=== PATIENT | female | born 1965 | race African-American/Black ===

== ENCOUNTER 2025-04-30 07:49 | Inpatient (IN) | payer MEDICAID ==
[~2025-04-30] VITALS: Ht 157.5 cm; Wt 85.3 kg
[2025-04-30 07:50] VITALS: O2SAT 95
[2025-04-30 08:57] LABS: BASOPHILS % 0.5 % (0.0-2.0); EOSINOPHILS % 0.2 % (0.0-5.0); HEMATOCRIT. 46.4 % (36.0-48.0); HEMOGLOBIN. 15.4 g/dL (12.0-16.0); LYMPHOCYTES % 11.4 % (20.0-50.0); MEAN PLATELET VOLUME 10.0 fl (7.4-10.4); MONOCYTES % 3.0 % (2.0-8.0); NEUTROPHILS % 84.9 % (40.0-76.0); PLATELET 214 x1000/uL (130-400); RED BLOOD CELL COUNT 5.20 mill/uL (4.2-5.4); RED CELL DISTRIBUTION WIDTH 15.7 % (11.6-14.6)
[2025-04-30] MEDS: ONDANSETRON HCL 4MG/2ML INJ IV ONE (08:58)
[2025-04-30] MEDS: ACETAMINOPHEN 325MG TABLET PO ONE (08:58)
[2025-04-30 09:34] LABS: CREATININE 1.1 mg/dL (0.6-1.0); UREA NITROGEN BLOOD 10 mg/dL (9-23)
[2025-04-30 09:36] LABS: ASPARTATE AMINOTRANSFERASE 33 IU/L (<34); BILIRUBIN TOTAL 0.8 mg/dL (0.1-1.0); PROTEIN TOTAL 8.0 g/dL (6.0-8.3)
[2025-04-30 09:37] LABS: TROPONIN I HIGH SENSITIVITY 79 ng/L (3.0-34)
[2025-04-30] MEDS ORDERED: CLONIDINE 0.1MG TABLET PO PRN (10:45)
[2025-04-30] MEDS ORDERED: ACETAMINOPHEN 325MG TABLET PO PRN ×2 (10:45)
[2025-04-30] MEDS ORDERED: GUAIFENESIN 200MG/10ML SUGAR FREE UDC PO PRN ×2 (10:45→11:00)
[2025-04-30] MEDS ORDERED: MAGNESIUM/ALUMINUM HYDROXIDE/SIMETHICONE 30ML UDC PO PRN (10:45)
[2025-04-30] MEDS ORDERED: DEXTROSE 50% WATER 50ML SYRINGE IV PRN (10:45)
[2025-04-30] MEDS ORDERED: DOCUSATE SODIUM 100MG CAPSULE PO PRN (10:45)
[2025-04-30] MEDS ORDERED: BENZONATATE 100MG CAPSULE PO PRN (11:00)
[2025-04-30] MEDS ORDERED: AZITHROMYCIN 500MG/250ML 250 ML IV SCH (11:00)
[2025-04-30] MEDS ORDERED: HYDRALAZINE 20MG/ML VIAL IV PRN (11:00)
[2025-04-30] MEDS ORDERED: HYDROXYZINE 25MG TABLET PO PRN (11:15)
[2025-04-30 11:32] LABS: INR 1.0
[2025-04-30 11:39] LABS: TROPONIN I HIGH SENSITIVITY 257 ng/L (3.0-34)
[2025-04-30 11:54] LABS: CLARITY URINE CLEAR (CLEAR); COLOR URINE YELLOW (YELLOW); GLUCOSE URINE 3+ (NEGATIVE); KETONES URINE TRACE (NEGATIVE); LEUKOCYTE ESTERASE URINE NEGATIVE (NEGATIVE); NITRITE URINE NEGATIVE (NEGATIVE); OCCULT BLOOD URINE 1+ (NEGATIVE); PH URINE 6.0 (4.5-8.0); PROTEIN URINE 2+ (NEGATIVE); SPECIFIC GRAVITY URINE 1.015 (1.005-1.030); UROBILINOGEN URINE 0.2 E.U./dL (0.2-1.0)
[2025-04-30 12:00] VITALS: BP 106/42; PULSE 75; RESP 17; TEMP 36.7; O2SAT 99
[2025-04-30] MEDS ORDERED: CEFTRIAXONE 2GM/50ML 50 ML IV SCH (12:00)
[2025-04-30] MEDS: PANTOPRAZOLE SODIUM 40 MG/VIAL IV SCH (12:02)
[2025-04-30] MEDS: DEXT 5%/LACTATED RINGERS 1,000 ML IV ONE (12:02)
[2025-04-30 12:20] LABS: *AMPHETAMINES SCREEN URINE NEGATIVE (NEGATIVE); *BARBITURATES SCREEN URINE NEGATIVE (NEGATIVE); *BENZODIAZEPINES SCREEN URINE NEGATIVE (NEGATIVE); *COCAINE SCREEN URINE NEGATIVE (NEGATIVE); METHADONE URINE SCREEN NEGATIVE (NEGATIVE)
[2025-04-30 12:21] LABS: CANNABINOID URINE SCREEN PRESUMPTIVE POSITIVE (NEGATIVE); ECSTASY MDMA SCREEN URINE NEGATIVE (NEGATIVE); OPIATES URINE SCREEN NEGATIVE (NEGATIVE); PHENCYCLIDINE URINE SCREEN NEGATIVE (NEGATIVE)
[2025-04-30 12:35] LABS: BACTERIA URINE 3+; SQUAMOUS EPITHELIAL CELL URINE 2+ /lpf (RARE/1+); YEAST URINE NONE SEEN
[2025-04-30 12:45] VITALS: BP 140/25; PULSE 78; RESP 18; TEMP 36.7516
[2025-04-30] MEDS: INSULIN LISPRO 100 UNITS/ML SUBCUT SCH (12:53)
[2025-04-30 12:59] LABS: TROPONIN I HIGH SENSITIVITY 372 ng/L (3.0-34)
[2025-04-30] MEDS: ASPIRIN 81MG TABLET PO NR (13:07)
[2025-04-30] MEDS: BLOOD SUGAR DIAGNOSTIC STRIP TEST SCH (13:38)
[2025-04-30] MEDS: CEFTRIAXONE 2GM/50ML 50 ML IV SCH (15:10)
[2025-04-30 16:00] VITALS: BP 140/75; PULSE 78; RESP 18; TEMP 36.7; O2SAT 99
[2025-04-30] MEDS: KETOROLAC 15MG/ML VIAL IV PRN (17:13)
[2025-04-30] MEDS: AZITHROMYCIN 500MG/250ML 250 ML IV SCH (17:26)
[2025-04-30 18:13] LABS: CREATINE KINASE MB FRACTION 2.7 ng/mL (0.5-3.6)
[2025-04-30 18:31] LABS: TROPONIN I HIGH SENSITIVITY 841.0 ng/L (3.0-34)
[2025-04-30 20:00] VITALS: BP 119/62; PULSE 63; RESP 20; TEMP 36.3; O2SAT 96
[2025-04-30] MEDS ORDERED: ATORVASTATIN CALCIUM 20MG TABLET PO SCH (21:00)
[2025-05-01] VITALS: BP 140/75; PULSE 78; RESP 18; TEMP 36.7; O2SAT 99
[2025-05-01 00:06] LABS: CREATINE KINASE MB FRACTION 3.6 ng/mL (0.5-3.6)
[2025-05-01 00:10] LABS: TROPONIN I HIGH SENSITIVITY 594.0 ng/L (3.0-34)
[2025-05-01 04:00] VITALS: BP 131/69; PULSE 77; RESP 16; TEMP 37; O2SAT 99
[2025-05-01] MEDS: ENOXAPARIN 100MG/ML SYR SUBCUT SCH (06:00)
[2025-05-01] MEDS: ATORVASTATIN CALCIUM 40MG TABLET PO SCH (06:15)
[2025-05-01] MEDS: AMLODIPINE 5MG TABLET PO SCH (06:15)
[2025-05-01 07:20] LABS: BASOPHILS % 0.2 % (0.0-2.0); EOSINOPHILS % 0.2 % (0.0-5.0); HEMATOCRIT. 39.4 % (36.0-48.0); HEMOGLOBIN. 13.2 g/dL (12.0-16.0); LYMPHOCYTES % 32.9 % (20.0-50.0); MEAN PLATELET VOLUME 9.9 fl (7.4-10.4); MONOCYTES % 4.6 % (2.0-8.0); NEUTROPHILS % 62.1 % (40.0-76.0); PLATELET 158 x1000/uL (130-400); RED BLOOD CELL COUNT 4.37 mill/uL (4.2-5.4); RED CELL DISTRIBUTION WIDTH 15.1 % (11.6-14.6)
[2025-05-01 07:40] LABS: CREATININE 1.0 mg/dL (0.6-1.0); TRIGLYCERIDE 176 mg/dL (0-150); UREA NITROGEN BLOOD 10 mg/dL (9-23)
[2025-05-01 07:41] LABS: LDL CHOLESTEROL 163 mg/dL (5-100)
[2025-05-01 07:43] LABS: T4 FREE 1.12 ng/dL (0.89-1.76)
[2025-05-01 08:06] VITALS: PULSE 85; RESP 16
[2025-05-01] MEDS: IPRATROPIUM/ALBUTEROL 0.5-3(2.5)MG/3ML NEB HHN PRN (08:06)
[2025-05-01] MEDS: ASPIRIN 81MG TABLET PO SCH (10:40)
[2025-05-01] MEDS: MULTIVITAMINS,THER W-MINERALS TABLET PO SCH (10:40)
[2025-05-01] MEDS: POTASSIUM CHLORIDE 20MEQ/PACKET PO NR (10:41)
[2025-05-01] MEDS: MAGNESIUM 2 G PREMIX 50 ML IV NR (10:41)
[2025-05-01] MEDS: THIAMINE HCL 100MG TABLET PO SCH (10:41)
[2025-05-01 12:00] VITALS: BP 126/50; PULSE 57; RESP 19; TEMP 36.5; O2SAT 98
[2025-05-01 12:07] LABS: ASPARTATE AMINOTRANSFERASE 25 IU/L (<34); BILIRUBIN DIRECT 0.2 mg/dL (<=3.0); BILIRUBIN TOTAL 0.9 mg/dL (0.1-1.0); PROTEIN TOTAL 6.7 g/dL (6.0-8.3)
[2025-05-01 16:00] VITALS: BP_SYST 101; BP_SYST 109; BP_DIAS 51; BP_DIAS 61; PULSE 99; RESP 16; TEMP 36.6; O2SAT 98
[2025-05-01 20:00] VITALS: BP 111/69; PULSE 88; RESP 18; TEMP 36.5; O2SAT 99
[2025-05-01 22:53] LABS: INFLUENZA TYPE A Presumptive Negative (Pres. Neg.)
[2025-05-01 22:54] LABS: INFLUENZA TYPE B Presumptive Negative (Pres. Neg.)
[2025-05-01 22:55] LABS: RESPIRATORY SYNCYTIAL VIRUS Not Detected (Not Detectd)
[2025-05-02] VITALS: BP 121/74; PULSE 67; RESP 16; TEMP 36.4; O2SAT 99
[2025-05-02 04:00] VITALS: BP 125/67; PULSE 88; RESP 17; TEMP 36.1; O2SAT 99
[2025-05-02 07:04] LABS: BASOPHILS % 0.4 % (0.0-2.0); CREATININE 0.9 mg/dL (0.6-1.0); EOSINOPHILS % 0.8 % (0.0-5.0); HEMATOCRIT. 39.0 % (36.0-48.0); HEMOGLOBIN. 13.3 g/dL (12.0-16.0); LYMPHOCYTES % 47.5 % (20.0-50.0); MEAN PLATELET VOLUME 9.8 fl (7.4-10.4); MONOCYTES % 6.8 % (2.0-8.0); NEUTROPHILS % 44.5 % (40.0-76.0); PLATELET 146 x1000/uL (130-400); RED BLOOD CELL COUNT 4.41 mill/uL (4.2-5.4); RED CELL DISTRIBUTION WIDTH 15.1 % (11.6-14.6)
[2025-05-02 07:05] LABS: UREA NITROGEN BLOOD 9 mg/dL (9-23)
[2025-05-02] MEDS ORDERED: HEPARIN 1000 UNITS/ML 10ML ONE (07:39)
[2025-05-02] MEDS ORDERED: IODIXANOL 320MG/ML 100 ML BOTTLE IV ONE ×2 (07:39→09:42)
[2025-05-02] MEDS ORDERED: LIDOCAINE HCL 1% 20ML VIAL ONE (08:51)
[2025-05-02] MEDS ORDERED: FENTANYL CITRATE/PF 50MCG/ML 2ML VIAL ONE ×2 (08:51→09:59)
[2025-05-02] MEDS ORDERED: MIDAZOLAM HCL 2 MG/2 ML VIAL ONE ×3 (08:51→10:09)
[2025-05-02] MEDS ORDERED: ATROPINE SULFATE 1MG/10ML SYR ONE (08:51)
[2025-05-02] MEDS ORDERED: VERAPAMIL HCL 2.5 MG/1 ML 2ML VIAL IV ONE (08:51)
[2025-05-02] MEDS ORDERED: DIPHENHYDRAMINE 50MG/ML VIAL ONE (08:51)
[2025-05-02] MEDS ORDERED: ONDANSETRON HCL 4MG/2ML INJ ONE (09:53)
[2025-05-02] MEDS ORDERED: HYDRALAZINE 20MG/ML VIAL ONE (10:09)
[2025-05-02] MEDS ORDERED: ACETAMINOPHEN 325MG TABLET PO PRN (11:00)
[2025-05-02] MEDS ORDERED: ATROPINE SULFATE 1MG/10ML SYR IV PRN (11:00)
[2025-05-02] MEDS: MORPHINE SULFATE 2 MG/ML INJ (NOT FOR IM USE) IV PRN (11:09)
[2025-05-02] MEDS: ONDANSETRON HCL 4MG/2ML INJ IV PRN (11:14)
[2025-05-02] MEDS: CLOPIDOGREL 75MG TABLET PO NR ×2 (11:45→17:36)
[2025-05-02 12:25] VITALS: BP 153/93; PULSE 92; RESP 22; TEMP 36.2; O2SAT 98
[2025-05-02] MEDS ORDERED: NALOXONE HCL 0.4MG/ML VIAL IV PRN (12:45)
[2025-05-02] MEDS: SODIUM CHLORIDE 0.45% 500 ML IV SCH (14:43)
[2025-05-02 16:00] VITALS: BP 128/63; PULSE 54; RESP 34; TEMP 36.4; O2SAT 92
[2025-05-02 20:00] VITALS: BP 146/77; PULSE 83; RESP 19; TEMP 36.4; O2SAT 93
[2025-05-02] MEDS: LEVOFLOXACIN 750MG PREMIX 150 ML IV SCH (20:46)
[2025-05-03] VITALS (34 sets, daily range): BP systolic 93–174; BP diastolic 10–153; PULSE 72–91; RESP 6–42; TEMP 36.6–37.2; O2SAT 90–99
[2025-05-03 07:55] LABS: BASOPHILS % 0.1 % (0.0-2.0); EOSINOPHILS % 0.2 % (0.0-5.0); HEMATOCRIT. 36.5 % (36.0-48.0); HEMOGLOBIN. 12.5 g/dL (12.0-16.0); LYMPHOCYTES % 30.8 % (20.0-50.0); MEAN PLATELET VOLUME 9.8 fl (7.4-10.4); MONOCYTES % 7.0 % (2.0-8.0); NEUTROPHILS % 61.9 % (40.0-76.0); PLATELET 142 x1000/uL (130-400); RED BLOOD CELL COUNT 4.12 mill/uL (4.2-5.4); RED CELL DISTRIBUTION WIDTH 14.8 % (11.6-14.6)
[2025-05-03 07:58] LABS: CREATININE 1.0 mg/dL (0.6-1.0); UREA NITROGEN BLOOD 9 mg/dL (9-23)
[2025-05-03] MEDS: CLOPIDOGREL 75MG TABLET PO SCH (07:58)
[2025-05-03] MEDS ORDERED: HEPARIN 1000 UNITS/ML 10ML ONE (08:10)
[2025-05-03] MEDS ORDERED: IODIXANOL 320 MG/ML 150ML BOTTLE IV ONE (08:10)
[2025-05-03] MEDS ORDERED: LIDOCAINE HCL 1% 20ML VIAL ONE (08:11)
[2025-05-03] MEDS ORDERED: ACETAMINOPHEN 1000MG/100ML 100 ML IV ONE (08:11)
[2025-05-03] MEDS ORDERED: PROPOFOL 10MG/ML 100ML 100 ML IV ONE (08:11)
[2025-05-03] MEDS ORDERED: FENTANYL CITRATE/PF 50MCG/ML 2ML VIAL IV PRN (10:15)
[2025-05-03] MEDS ORDERED: ONDANSETRON HCL 4MG/2ML INJ IV PRN (10:15)
[2025-05-03] MEDS ORDERED: IODIXANOL 320MG/ML 100 ML BOTTLE IV ONE (11:12)
[2025-05-03] MEDS ORDERED: ATROPINE SULFATE 1MG/10ML SYR IV PRN (12:15)
[2025-05-03] MEDS ORDERED: ACETAMINOPHEN 325MG TABLET PO PRN (12:15)
[2025-05-03] MEDS: SODIUM CHLORIDE 0.45% 1,000 ML IV SCH (13:22)
[2025-05-03] MEDS ORDERED: LORAZEPAM 2MG/ML UD SYRINGE IV PRN (13:33)
[2025-05-03] MEDS ORDERED: IOHEXOL-350 100 ML BOTTLE ONE (22:43)
[2025-05-04] VITALS (13 sets, daily range): BP systolic 121–131; BP diastolic 63–89; PULSE 74–99; RESP 8–30; TEMP 36.6–37.1; O2SAT 89–99
[2025-05-04] MEDS: ONDANSETRON HCL 4MG/2ML INJ IV PRN (00:11)
[2025-05-04 08:00] LABS: BASOPHILS % 0.2 % (0.0-2.0); EOSINOPHILS % 0.1 % (0.0-5.0); HEMATOCRIT. 34.8 % (36.0-48.0); HEMOGLOBIN. 11.8 g/dL (12.0-16.0); LYMPHOCYTES % 19.8 % (20.0-50.0); MEAN PLATELET VOLUME 9.8 fl (7.4-10.4); MONOCYTES % 7.0 % (2.0-8.0); NEUTROPHILS % 72.9 % (40.0-76.0); PLATELET 160 x1000/uL (130-400); RED BLOOD CELL COUNT 3.92 mill/uL (4.2-5.4); RED CELL DISTRIBUTION WIDTH 14.8 % (11.6-14.6)
[2025-05-04 08:32] LABS: CREATININE 1.0 mg/dL (0.6-1.0)
[2025-05-04 08:33] LABS: UREA NITROGEN BLOOD 8 mg/dL (9-23)
[2025-05-04 08:35] LABS: PHOSPHORUS 3.0 mg/dL (2.5-4.9)
[2025-05-04] MEDS: ATORVASTATIN CALCIUM 40MG TABLET PO SCH (21:39)
[2025-05-05] VITALS: BP 127/80; PULSE 99; RESP 20; TEMP 36.8; O2SAT 98
[2025-05-05 04:00] VITALS: BP 127/80; PULSE 97; RESP 20; TEMP 36.8; O2SAT 98
[2025-05-05 07:50] LABS: PLATELET 149 x1000/uL (130-400); RED BLOOD CELL COUNT 3.75 mill/uL (4.2-5.4); RED CELL DISTRIBUTION WIDTH 14.9 % (11.6-14.6)
[2025-05-05 08:00] VITALS: BP 122/65; PULSE 70; RESP 18; TEMP 36.5; O2SAT 96
[2025-05-05 08:04] LABS: CREATININE 1.0 mg/dL (0.6-1.0); UREA NITROGEN BLOOD 8 mg/dL (9-23)
[2025-05-05] MEDS: FAMOTIDINE 20MG/2ML VIAL IV SCH (08:50)
[2025-05-05 10:58] VITALS: BP 114/74; PULSE 78; RESP 18; TEMP 98.2
[2025-05-05 12:00] VITALS: BP 114/74; PULSE 78; RESP 18; TEMP 36.8; O2SAT 96
[2025-05-05] MEDS ORDERED: CLOP-31 MT (12:36)
[2025-05-05] MEDS ORDERED: ATOR-388 PO (12:36)
[2025-05-05] MEDS ORDERED: CARV3.1242 MT (12:36)
[2025-05-05] MEDS ORDERED: ASPI-1406 MT (12:36)
[2025-05-05] MEDS ORDERED: LEVO750T68 MT (14:49)
== END 2025-05-05 15:05 | disposition home or self-care (01) | DRG 710 ==
LOC: ER 08:47 → 6WST 09:52 → EDBEDREQ 09:58 → EDBEDREQTM 09:58 → ENRESERV 11:55 → MICUSO 13:19 → 6WST 13:20 → 3WST 05-02 12:23 → CVICU 05-03 12:33 → 6WST 05-04 11:53
PROVIDERS: ADMIT Internal Medicine; ATTEND Internal Medicine
PROC: 02703ZZ Dilation of Coronary Artery, One Artery, Percutaneous Approach (ICD-10-PCS; principal; 2025-05-02)
PROC: 4A023N7 Measurement of Cardiac Sampling and Pressure, Left Heart, Percutaneous Approach (ICD-10-PCS; 2025-05-02)
PROC: B211YZZ Fluoroscopy of Multiple Coronary Arteries using Other Contrast (ICD-10-PCS; 2025-05-02)
PROC: 4A023N7 Measurement of Cardiac Sampling and Pressure, Left Heart, Percutaneous Approach (ICD-10-PCS; 2025-05-03)
PROC: B211YZZ Fluoroscopy of Multiple Coronary Arteries using Other Contrast (ICD-10-PCS; 2025-05-03)
PROC: B41FYZZ Fluoroscopy of Right Lower Extremity Arteries using Other Contrast (ICD-10-PCS; 2025-05-03)
PROC: B41CYZZ Fluoroscopy of Pelvic Arteries using Other Contrast (ICD-10-PCS; 2025-05-03)
PROC: 027037Z Dilation of Coronary Artery, One Artery with Four or More Drug-eluting Intraluminal Devices, Percutaneous Approach (ICD-10-PCS; 2025-05-03)
DX: A41.9 Sepsis, unspecified organism (principal); I21.A1 Myocardial infarction type 2; I47.20 Ventricular tachycardia, unspecified; G90.89 Other disorders of autonomic nervous system; S09.90XA Unspecified injury of head, initial encounter; N17.9 Acute kidney failure, unspecified; J44.1 Chronic obstructive pulmonary disease with (acute) exacerbation; B96.89 Other specified bacterial agents as the cause of diseases classified elsewhere; I10 Essential (primary) hypertension; N39.0 Urinary tract infection, site not specified; Z20.822 Contact with and (suspected) exposure to COVID-19; E66.9 Obesity, unspecified; E78.5 Hyperlipidemia, unspecified; F41.9 Anxiety disorder, unspecified; R73.9 Hyperglycemia, unspecified; J11.1 Influenza due to unidentified influenza virus with other respiratory manifestations; I95.1 Orthostatic hypotension; E86.9 Volume depletion, unspecified; X58.XXXA Exposure to other specified factors, initial encounter; I25.10 Atherosclerotic heart disease of native coronary artery without angina pectoris; I25.2 Old myocardial infarction; Z79.899 Other long term (current) drug therapy; Z79.82 Long term (current) use of aspirin; Z79.02 Long term (current) use of antithrombotics/antiplatelets; Y93.89 Activity, other specified; Y92.89 Other specified places as the place of occurrence of the external cause; Y99.8 Other external cause status; Z68.34 Body mass index [BMI] 34.0-34.9, adult
CPT/HCPCS: 36415; 71045; 71275; 80048; 80053; 80061; 80076; 80305; 81003; 82010; 82550; 82553; 82962; 83036; 83605; 83735; 83880; 84100; 84145; 84439; 84443; 84484; 85025; 85027; 85347; 87077; 87186; 87420; 87426; 87804; 92928; 93005; 93308; 93312; 93458; 94070; 94640; 94664; 99291; A4606; C1725; C1769; C1874; C1887; C1893; J0360; J0456; J0461; J0696; J1200; J1308; J1644; J1650; J1815; J1885; J1956; J2003; J2060; J2250; J2270; J2405; J2470; J2704; J3010; J3475; J3490; Q9967; J0131